=== PATIENT | female | born 1980 | race Caucasian/White ===

== ENCOUNTER 2017-08-30 01:06 | Inpatient (IN) | payer OTHER ==
[~2017-08-30] VITALS: Ht 157.5 cm; Wt 90.7 kg
[~2017-08-30 01:06] MED LIST: PRENATABS FA T1 EACH; PROGESTERONE200 MG; SYNTHROID50 MCG
[2017-09-01] MEDS ORDERED: SYNTHROID50 MCG PO (09:02)
[2017-09-01] MEDS ORDERED: PREPLUS CA-FE1 EACH PO (09:02)
== END 2017-09-01 12:41 | disposition home or self-care (01) | DRG 774 ==
LOC: LDR 01:06 → OB/GYN 01:06
PROC: 0DQR0ZZ Repair Anal Sphincter, Open Approach (ICD-10-PCS; principal; 2017-08-30)
PROC: 10E0XZZ Delivery of Products of Conception, External Approach (ICD-10-PCS; 2017-08-30)
PROC: 4A1HXCZ Monitoring of Products of Conception, Cardiac Rate, External Approach (ICD-10-PCS; 2017-08-30)
DX: O70.21 Third degree perineal laceration during delivery, IIIa (principal); O98.513 Other viral diseases complicating pregnancy, third trimester; O20.0 Threatened abortion; O48.0 Post-term pregnancy; O99.820 Streptococcus B carrier state complicating pregnancy; O99.283 Endocrine, nutritional and metabolic diseases complicating pregnancy, third trimester; E03.8 Other specified hypothyroidism; Z3A.40 40 weeks gestation of pregnancy; Z37.0 Single live birth

== ENCOUNTER 2023-02-17 13:06 | Outpatient (CLI) | payer OTHER ==
[~2023-02-17 13:06] MED LIST changes: +PREPLUS CA-FE1 EACH PO; +SYNTHROID50 MCG PO
== END 2023-02-17 14:30 | disposition home or self-care (01) ==
LOC: PRENATAL 13:06
PROVIDERS: ATTEND Obstetrics & Gynecology Maternal & Fetal Medicine
DX: O36.80X0 Pregnancy with inconclusive fetal viability, not applicable or unspecified (principal); Z36.9 Encounter for antenatal screening, unspecified; O09.529 Supervision of elderly multigravida, unspecified trimester; O99.280 Endocrine, nutritional and metabolic diseases complicating pregnancy, unspecified trimester; Z3A.11 11 weeks gestation of pregnancy

== ENCOUNTER 2023-04-19 09:28 | Outpatient (CLI) | payer OTHER | END 2023-04-19 09:30 | disposition home or self-care (01) | LOC: PRENATAL 09:28 | PROVIDERS: ATTEND Obstetrics & Gynecology Maternal & Fetal Medicine | DX: O35.3XX0 Maternal care for (suspected) damage to fetus from viral disease in mother, not applicable or unspecified (principal); O44.00 Complete placenta previa NOS or without hemorrhage, unspecified trimester; O09.529 Supervision of elderly multigravida, unspecified trimester; O99.280 Endocrine, nutritional and metabolic diseases complicating pregnancy, unspecified trimester; Z3A.20 20 weeks gestation of pregnancy ==

== ENCOUNTER 2023-06-29 16:23 | Outpatient (CLI) | payer OTHER | END 2023-06-29 16:28 | disposition home or self-care (01) | LOC: PRENATAL 16:23 | PROVIDERS: ATTEND Obstetrics & Gynecology Maternal & Fetal Medicine | DX: Z76.1 Encounter for health supervision and care of foundling (principal) ==

== ENCOUNTER 2023-07-14 13:34 | Outpatient (CLI) | payer OTHER | END 2023-07-14 13:35 | disposition home or self-care (01) | LOC: PRENATAL 13:34 | PROVIDERS: ATTEND Obstetrics & Gynecology Maternal & Fetal Medicine | DX: O26.849 Uterine size-date discrepancy, unspecified trimester (principal); O36.8199 Decreased fetal movements, unspecified trimester, other fetus; O09.529 Supervision of elderly multigravida, unspecified trimester; O99.280 Endocrine, nutritional and metabolic diseases complicating pregnancy, unspecified trimester; O24.419 Gestational diabetes mellitus in pregnancy, unspecified control; Z3A.32 32 weeks gestation of pregnancy ==

== ENCOUNTER 2023-08-12 13:31 | Outpatient (CLI) | payer OTHER | END 2023-08-12 13:32 | disposition home or self-care (01) | LOC: PRENATAL 13:31 | PROVIDERS: ATTEND Obstetrics & Gynecology Maternal & Fetal Medicine | DX: O26.849 Uterine size-date discrepancy, unspecified trimester (principal); O36.8199 Decreased fetal movements, unspecified trimester, other fetus; O09.529 Supervision of elderly multigravida, unspecified trimester; O99.280 Endocrine, nutritional and metabolic diseases complicating pregnancy, unspecified trimester; O24.419 Gestational diabetes mellitus in pregnancy, unspecified control; Z3A.36 36 weeks gestation of pregnancy ==

== ENCOUNTER 2023-08-24 13:30 | Inpatient (IN) | payer OTHER ==
[~2023-08-24] VITALS: Ht 157.5 cm; Wt 92.5 kg
[2023-08-29] MEDS ORDERED: AMPICILLIN SODIUM 2,000 MG VIAL IV ONE (08:15)
[2023-08-29] MEDS ORDERED: RINGERS SOLUTION,LACTATED 1,000 ML IV SCH (08:30)
[2023-08-29] MEDS ORDERED: OXYTOCIN 20 UNITS/500ML RL PIGGYBAG IV ONE (08:37)
[2023-08-29 08:59] LABS: HEMATOCRIT 32.9 % (36.0-45.00); HEMOGLOBIN 11.4 g/dL (12.0-15.00); MEAN CELL VOLUME 88.2 fL (80.00-100.00); MEAN CORPUSCULAR HEMOGLOBIN 30.6 pg (27.00-32.0); MEAN CORPUSCULAR HGB CONC 34.7 g/dl (32.0-36.0); PLATELET COUNT 240 K/uL (150-450); RED BLOOD COUNT 3.73 M/uL (4.00-6.00); RED CELL DISTRIBUTION WIDTH 15.1 % (11.5-14.5)
[2023-08-29] MEDS ORDERED: OXYTOCIN 500 ML IV SCH (09:00)
[2023-08-29 09:09] LABS: PH,URINE 5.5 (5.0-8.0); URINE APPEARANCE Cloudy; URINE BILIRRUBIN Negative (NEGATIVE); URINE BLOOD Negative; URINE COLOR Yellow; URINE GLUCOSE Negative (NEGATIVE); URINE LEUKOCYTE Large; URINE NITRATE Negative; URINE PROTEIN Negative (NEGATIVE)
[2023-08-29 09:10] LABS: URINE BACTERIA 8100.3 uL (0.0-1933); URINE EPITHELIAL CELLS 90.4 uL (0.0-38.8); URINE WBC 257.5 uL (0.0-23.2)
[2023-08-29 09:19] LABS: INR 0.97; PARTIAL THROMBOPLASTIN TIME 28.2 SECONDS (22.0-34.0); PROTHROMBIN TIME 10.2 SECONDS (9.0-11.5)
[2023-08-29 09:26] LABS: ALBUMIN 2.4 gm/dL (3.4-5.0); BILIRUBIN TOTAL 0.19 mg/dL (0.3-1.2); CALCIUM 8.7 mg/dL (8.5-10.1); CREATININE SERUM 0.33 mg/dL (0.55-1.02); GFR 218.55; GLOBULINA 3.2 G/DL (2.4-3.5); POTASSIUM 3.84 mEq/L (3.5-5.1); TOTAL PROTEIN 5.6 gm/dL (6.4-8.2)
[2023-08-29 10:23] LABS: URINE RBC 1.8 uL (0.0-20.8)
[2023-08-29] MEDS ORDERED: AMPICILLIN SODIUM 1,000 MG VIAL IV SCH (12:00)
[2023-08-29] MEDS ORDERED: LIDOCAINE HCL 1% 200MG/20ML VIAL IJ SCH (16:15)
[2023-08-29] MEDS ORDERED: CHLORHEXIDINE GLUCONATE 120 ML BOTTLE TOP SCH (16:15)
[2023-08-29] MEDS ORDERED: IBUprofen 400 MG TABLET PO PRN (16:15)
[2023-08-29] MEDS ORDERED: OXYTOCIN 1,000 ML IV SCH (16:15)
[2023-08-29] MEDS ORDERED: ERYTHROMYCIN BASE 1 GM TUBE OP SCH (16:15)
[2023-08-30 05:57] LABS: HEMATOCRIT 32.2 % (36.0-45.00); HEMOGLOBIN 11.3 g/dL (12.0-15.00); MEAN CELL VOLUME 88.3 fL (80.00-100.00); MEAN CORPUSCULAR HEMOGLOBIN 30.9 pg (27.00-32.0); MEAN CORPUSCULAR HGB CONC 35.1 g/dl (32.0-36.0); PLATELET COUNT 242 K/uL (150-450); RED BLOOD COUNT 3.65 M/uL (4.00-6.00); RED CELL DISTRIBUTION WIDTH 15.2 % (11.5-14.5)
[2023-08-30] MEDS ORDERED: PNV,CALCIUM 72/IRON/FOLIC ACID 1 TAB TABLET PO SCH (09:00)
[2023-08-31] MEDS ORDERED: LEVOTHYROXINE SODIUM 50 MCG TABLET PO SCH (06:00)
[2023-09-01] MEDS ORDERED: LEVOTHYROXINE SODIUM 100 MCG TABLET PO SCH (06:00)
== END 2023-08-31 11:32 | disposition home or self-care (01) | DRG 807 ==
LOC: LDR 08-29 06:00 → OB/GYN 08-29 16:39 → LDR 09-05 13:30
PROVIDERS: Obstetrics & Gynecology; ADMIT Student in an Organized Health Care Education/Training Program; ATTEND Student in an Organized Health Care Education/Training Program
PROC: 10E0XZZ Delivery of Products of Conception, External Approach (ICD-10-PCS; principal; 2023-08-29)
PROC: 0HQ9XZZ Repair Perineum Skin, External Approach (ICD-10-PCS; 2023-08-29)
PROC: 0UQG7ZZ Repair Vagina, Via Natural or Artificial Opening (ICD-10-PCS; 2023-08-29)
PROC: 4A1HXCZ Monitoring of Products of Conception, Cardiac Rate, External Approach (ICD-10-PCS; 2023-08-29)
DX: O70.0 First degree perineal laceration during delivery (principal); Z37.0 Single live birth; O99.824 Streptococcus B carrier state complicating childbirth; Z3A.39 39 weeks gestation of pregnancy; Z20.822 Contact with and (suspected) exposure to COVID-19